=== PATIENT | male | born 1955 | race African-American/Black ===

== ENCOUNTER 2021-05-18 16:24 | Inpatient (IN) | payer MEDICAID ==
[~2021-05-18] VITALS: Ht 188 cm; Wt 94.8 kg
[~2021-05-18 16:24] MED LIST: AMLO-258 PO; CARV3 PO; CHL25 PO; ISOS30TA92 PO; LISI-894 PO
[2021-05-19 13:00] VITALS: BP 161/89
[2021-05-19] MEDS ORDERED: ACETAMINOPHEN 325 MG TABLET PO PRN ×2 (13:45→16:45)
[2021-05-19 15:00] VITALS: BP 154/86
[2021-05-19] MEDS ORDERED: MELATONIN 3 MG TABLET PO PRN (16:45)
[2021-05-19 20:28] VITALS: BP 150/87
[2021-05-19] MEDS: DOCUSATE SODIUM 100 MG CAPSULE PO SCH (20:34)
[2021-05-19] MEDS: SENNA 187 MG TABLET PO SCH (20:34)
[2021-05-19] MEDS: HydrALAZINE HCL 10 MG TABLET PO SCH (20:34)
[2021-05-19] MEDS: ATORVASTATIN CALCIUM 40 MG TABLET PO SCH (20:34)
[2021-05-19] MEDS: CARVEDILOL 3.125 MG TABLET PO SCH (20:34)
[2021-05-19 23:30] VITALS: BP 164/90
[2021-05-20 01:00] VITALS: BP 163/91
[2021-05-20 06:42] LABS: BASOPHILS % (AUTO) 0.6 % (0.0-2.0); EOSINOPHILS % (AUTO) 0.2 % (1.0-6.0); HEMATOCRIT 35.7 % (41-53); LYMPHOCYTES # (AUTO) 0.5 K/uL (1.0-4.8); LYMPHOCYTES % (AUTO) 3.3 % (22.0-44.0); MEAN CORPUSCULAR HEMOGLOBIN 31.1 pg (26.0-34.0); MEAN CORPUSCULAR HGB CONC 33.6 G/dL (31.0-37.0); MEAN CORPUSCULAR VOLUME 93 fL (80-100); MONOCYTES # (AUTO) 1.4 K/uL (0.1-1.0); MONOCYTES % (AUTO) 8.8 % (2.0-9.0); NEUTROPHILS # (AUTO) 13.5 K/uL (1.8-7.7); PLATELET COUNT (AUTO) 425 K/uL (150-450); RED BLOOD CELL COUNT(AUTO) 3.86 MIL/uL (4.50-5.90)
[2021-05-20 06:52] LABS: NEUTROPHILS % (AUTO) 87.1 % (40.0-70.0)
[2021-05-20 07:09] LABS: ALBUMIN 3.3 g/dL (3.4-5.0); POTASSIUM 3.7 mmol/L (3.5-5.1)
[2021-05-20 07:20] LABS: BILIRUBIN,TOTAL 0.4 mg/dL (0.1-1.0); CALCIUM, TOTAL 9.1 mg/dL (8.8-10.5); CREATININE 1.5 mg/dL (0.60-1.30); TOTAL PROTEIN, SERUM 6.3 g/dL (6.4-8.2)
[2021-05-20] MEDS: ENOXAPARIN SODIUM 40 MG/0.4 ML PF SYRINGE SQ SCH (08:21)
[2021-05-20] MEDS: CARVEDILOL 3.125 MG TABLET PO SCH ×2 (08:22→20:12)
[2021-05-20] MEDS: DOCUSATE SODIUM 100 MG CAPSULE PO SCH ×2 (08:22→20:12)
[2021-05-20] MEDS: HydrALAZINE HCL 10 MG TABLET PO SCH ×2 (08:22→20:12)
[2021-05-20] MEDS: AmLODIPine BESYLATE 10 MG TABLET PO SCH (08:22)
[2021-05-20] MEDS: CLOPIDOGREL BISULFATE 75 MG TABLET PO SCH (08:23)
[2021-05-20] MEDS: ETHYL ALCOHOL 62% ANTISEPTIC NASAL INHALANT 0.6 ML AMPUL NASAL SCH ×2 (08:23→20:11)
[2021-05-20 08:37] VITALS: BP 188/89
[2021-05-20 10:40] VITALS: BP 155/79
[2021-05-20] MEDS: LISINOPRIL 20 MG TABLET PO SCH (12:06)
[2021-05-20 16:13] VITALS: BP 151/74
[2021-05-20] MEDS: FAMOTIDINE 20 MG TABLET PO SCH (16:32)
[2021-05-20 20:07] VITALS: BP 154/80
[2021-05-20] MEDS: SENNA 187 MG TABLET PO SCH (20:12)
[2021-05-20] MEDS: ATORVASTATIN CALCIUM 40 MG TABLET PO SCH (20:12)
[2021-05-21 04:00] VITALS: BP 165/98
[2021-05-21] MEDS: FAMOTIDINE 20 MG TABLET PO SCH ×2 (05:46→16:41)
[2021-05-21] MEDS: HydrALAZINE HCL 10 MG TABLET PO SCH ×2 (07:56→20:28)
[2021-05-21] MEDS: ETHYL ALCOHOL 62% ANTISEPTIC NASAL INHALANT 0.6 ML AMPUL NASAL SCH ×2 (07:56→20:28)
[2021-05-21] MEDS: ENOXAPARIN SODIUM 40 MG/0.4 ML PF SYRINGE SQ SCH (07:56)
[2021-05-21] MEDS: LISINOPRIL 20 MG TABLET PO SCH (07:57)
[2021-05-21] MEDS: CLOPIDOGREL BISULFATE 75 MG TABLET PO SCH (07:57)
[2021-05-21] MEDS: AmLODIPine BESYLATE 10 MG TABLET PO SCH (07:58)
[2021-05-21] MEDS: CARVEDILOL 3.125 MG TABLET PO SCH (07:58)
[2021-05-21] MEDS: DOCUSATE SODIUM 100 MG CAPSULE PO SCH ×2 (07:58→20:23)
[2021-05-21 08:58] VITALS: BP 183/83
[2021-05-21 09:15] VITALS: BP 154/83
[2021-05-21] MEDS ORDERED: HydrALAZINE HCL 25 MG TABLET PO PRN (10:00)
[2021-05-21 10:50] VITALS: BP 142/94
[2021-05-21 15:44] VITALS: BP 158/81
[2021-05-21 20:24] VITALS: BP 160/92
[2021-05-21] MEDS: SENNA 187 MG TABLET PO SCH (20:24)
[2021-05-21] MEDS: ATORVASTATIN CALCIUM 40 MG TABLET PO SCH (20:27)
[2021-05-21] MEDS: CARVEDILOL 6.25 MG TABLET PO SCH (20:28)
[2021-05-22 01:49] VITALS: BP 148/71
[2021-05-22] MEDS: FAMOTIDINE 20 MG TABLET PO SCH ×2 (05:42→16:55)
[2021-05-22] MEDS: ETHYL ALCOHOL 62% ANTISEPTIC NASAL INHALANT 0.6 ML AMPUL NASAL SCH ×2 (07:40→20:28)
[2021-05-22] MEDS: LISINOPRIL 20 MG TABLET PO SCH (07:41)
[2021-05-22] MEDS: ENOXAPARIN SODIUM 40 MG/0.4 ML PF SYRINGE SQ SCH (07:41)
[2021-05-22] MEDS: HydrALAZINE HCL 10 MG TABLET PO SCH ×2 (07:41→20:28)
[2021-05-22] MEDS: AmLODIPine BESYLATE 10 MG TABLET PO SCH (07:41)
[2021-05-22] MEDS: DOCUSATE SODIUM 100 MG CAPSULE PO SCH ×2 (07:41→20:27)
[2021-05-22] MEDS: CLOPIDOGREL BISULFATE 75 MG TABLET PO SCH (07:41)
[2021-05-22] MEDS: CARVEDILOL 6.25 MG TABLET PO SCH ×2 (07:42→20:28)
[2021-05-22 08:06] VITALS: BP 138/90
[2021-05-22 16:50] VITALS: BP 155/88
[2021-05-22 20:26] VITALS: BP 153/79
[2021-05-22] MEDS: SENNA 187 MG TABLET PO SCH (20:27)
[2021-05-22] MEDS: ATORVASTATIN CALCIUM 40 MG TABLET PO SCH (20:27)
[2021-05-23 03:20] VITALS: BP 148/79
[2021-05-23] MEDS: FAMOTIDINE 20 MG TABLET PO SCH ×2 (05:40→17:21)
[2021-05-23 06:26] LABS: BASOPHILS % (AUTO) 0.8 % (0.0-2.0); EOSINOPHILS % (AUTO) 0.4 % (1.0-6.0); HEMATOCRIT 34.4 % (41-53); HEMOGLOBIN 11.7 g/dL (13.5-17.5); LYMPHOCYTES # (AUTO) 0.5 K/uL (1.0-4.8); LYMPHOCYTES % (AUTO) 3.3 % (22.0-44.0); MEAN CORPUSCULAR HGB CONC 34.1 G/dL (31.0-37.0); MEAN CORPUSCULAR VOLUME 94 fL (80-100); MONOCYTES # (AUTO) 1.7 K/uL (0.1-1.0); MONOCYTES % (AUTO) 12.3 % (2.0-9.0); NEUTROPHILS # (AUTO) 11.8 K/uL (1.8-7.7); NEUTROPHILS % (AUTO) 83.2 % (40.0-70.0); PLATELET COUNT (AUTO) 538 K/uL (150-450); RED BLOOD CELL COUNT(AUTO) 3.67 MIL/uL (4.50-5.90)
[2021-05-23 06:43] LABS: ANION GAP 7 mmol/L (8-16); CARBON DIOXIDE 28 mmol/L (22-29); CHLORIDE 103 mmol/L (98-107); CREATININE 1.34 mg/dL (0.60-1.30); GLUCOSE,RANDOM 92 mg/dL (70-110); POTASSIUM 3.8 mmol/L (3.5-5.1); SODIUM SERUM 138 mmol/L (136-145); UREA NITROGEN, BLOOD 19 mg/dL (7-18)
[2021-05-23 06:55] LABS: GLOMERULAR FILTR. RATE CALC > 60 mL/min (>60)
[2021-05-23] MEDS: AmLODIPine BESYLATE 10 MG TABLET PO SCH (07:48)
[2021-05-23] MEDS: CARVEDILOL 6.25 MG TABLET PO SCH ×2 (07:48→21:36)
[2021-05-23] MEDS: CLOPIDOGREL BISULFATE 75 MG TABLET PO SCH (07:48)
[2021-05-23] MEDS: LISINOPRIL 20 MG TABLET PO SCH (07:49)
[2021-05-23] MEDS: ENOXAPARIN SODIUM 40 MG/0.4 ML PF SYRINGE SQ SCH (07:49)
[2021-05-23] MEDS: HydrALAZINE HCL 10 MG TABLET PO SCH ×2 (07:49→21:36)
[2021-05-23] MEDS: DOCUSATE SODIUM 100 MG CAPSULE PO SCH ×2 (07:49→21:00)
[2021-05-23] MEDS: ETHYL ALCOHOL 62% ANTISEPTIC NASAL INHALANT 0.6 ML AMPUL NASAL SCH ×2 (07:50→21:36)
[2021-05-23 08:05] VITALS: BP 132/74
[2021-05-23 15:09] VITALS: BP 159/76
[2021-05-23] MEDS: SENNA 187 MG TABLET PO SCH (21:00)
[2021-05-23 21:35] VITALS: BP 148/76
[2021-05-23] MEDS: ATORVASTATIN CALCIUM 40 MG TABLET PO SCH (21:36)
[2021-05-24 05:00] VITALS: BP 141/84
[2021-05-24] MEDS: FAMOTIDINE 20 MG TABLET PO SCH ×2 (05:45→16:49)
[2021-05-24 07:23] VITALS: BP 168/98
[2021-05-24] MEDS: ENOXAPARIN SODIUM 40 MG/0.4 ML PF SYRINGE SQ SCH (07:39)
[2021-05-24] MEDS: HydrALAZINE HCL 10 MG TABLET PO SCH ×2 (07:39→19:53)
[2021-05-24] MEDS: CLOPIDOGREL BISULFATE 75 MG TABLET PO SCH (07:39)
[2021-05-24] MEDS: ETHYL ALCOHOL 62% ANTISEPTIC NASAL INHALANT 0.6 ML AMPUL NASAL SCH ×2 (07:39→19:53)
[2021-05-24] MEDS: LISINOPRIL 20 MG TABLET PO SCH (07:39)
[2021-05-24] MEDS: CARVEDILOL 6.25 MG TABLET PO SCH ×2 (07:39→19:54)
[2021-05-24] MEDS: AmLODIPine BESYLATE 10 MG TABLET PO SCH (07:40)
[2021-05-24] MEDS: DOCUSATE SODIUM 100 MG CAPSULE PO SCH ×2 (07:40→19:54)
[2021-05-24 08:25] VITALS: BP 143/75
[2021-05-24 16:30] VITALS: BP 146/78
[2021-05-24] MEDS: SENNA 187 MG TABLET PO SCH (19:54)
[2021-05-24] MEDS: ATORVASTATIN CALCIUM 40 MG TABLET PO SCH (19:54)
[2021-05-24 19:55] VITALS: BP 142/70
[2021-05-25 02:00] VITALS: BP 150/80
[2021-05-25] MEDS: FAMOTIDINE 20 MG TABLET PO SCH ×2 (05:54→16:16)
[2021-05-25] MEDS: HydrALAZINE HCL 10 MG TABLET PO SCH ×2 (08:13→20:22)
[2021-05-25] MEDS: ENOXAPARIN SODIUM 40 MG/0.4 ML PF SYRINGE SQ SCH (08:13)
[2021-05-25] MEDS: AmLODIPine BESYLATE 10 MG TABLET PO SCH (08:14)
[2021-05-25] MEDS: ETHYL ALCOHOL 62% ANTISEPTIC NASAL INHALANT 0.6 ML AMPUL NASAL SCH ×2 (08:14→20:22)
[2021-05-25] MEDS: CARVEDILOL 6.25 MG TABLET PO SCH ×2 (08:14→20:22)
[2021-05-25] MEDS: LISINOPRIL 20 MG TABLET PO SCH (08:14)
[2021-05-25] MEDS: DOCUSATE SODIUM 100 MG CAPSULE PO SCH ×2 (08:14→20:22)
[2021-05-25] MEDS: CLOPIDOGREL BISULFATE 75 MG TABLET PO SCH (08:14)
[2021-05-25 09:05] VITALS: BP 147/92
[2021-05-25 16:12] VITALS: BP 144/73
[2021-05-25 20:22] VITALS: BP 145/80
[2021-05-25] MEDS: SENNA 187 MG TABLET PO SCH (20:22)
[2021-05-25] MEDS: ATORVASTATIN CALCIUM 40 MG TABLET PO SCH (20:22)
[2021-05-26] MEDS ORDERED: ATOR40TA28 PO (01:27)
[2021-05-26] MEDS ORDERED: LISI-894 PO (01:27)
[2021-05-26] MEDS ORDERED: CARV6 PO (01:27)
[2021-05-26] MEDS ORDERED: DOCU-270 PO (01:27)
[2021-05-26] MEDS ORDERED: FAMO20 PO (01:27)
[2021-05-26] MEDS ORDERED: HYDR10TA31 PO (01:27)
[2021-05-26] MEDS ORDERED: CLOP75TA60 PO (01:27)
[2021-05-26 03:30] VITALS: BP 124/78
[2021-05-26] MEDS: FAMOTIDINE 20 MG TABLET PO SCH ×2 (05:48→16:30)
[2021-05-26 07:24] VITALS: BP 161/83
[2021-05-26 08:05] VITALS: BP 140/85
[2021-05-26] MEDS: ETHYL ALCOHOL 62% ANTISEPTIC NASAL INHALANT 0.6 ML AMPUL NASAL SCH ×2 (08:06→20:35)
[2021-05-26] MEDS: ENOXAPARIN SODIUM 40 MG/0.4 ML PF SYRINGE SQ SCH (08:07)
[2021-05-26] MEDS: AmLODIPine BESYLATE 10 MG TABLET PO SCH (08:07)
[2021-05-26] MEDS: CLOPIDOGREL BISULFATE 75 MG TABLET PO SCH (08:07)
[2021-05-26] MEDS: HydrALAZINE HCL 10 MG TABLET PO SCH ×2 (08:07→20:36)
[2021-05-26] MEDS: LISINOPRIL 20 MG TABLET PO SCH (08:07)
[2021-05-26] MEDS: CARVEDILOL 6.25 MG TABLET PO SCH ×2 (08:08→20:36)
[2021-05-26] MEDS: DOCUSATE SODIUM 100 MG CAPSULE PO SCH ×2 (08:09→20:36)
[2021-05-26 16:41] VITALS: BP 149/85
[2021-05-26 20:35] VITALS: BP 165/82
[2021-05-26] MEDS: ATORVASTATIN CALCIUM 40 MG TABLET PO SCH (20:35)
[2021-05-26] MEDS: SENNA 187 MG TABLET PO SCH (20:36)
[2021-05-26 22:21] VITALS: BP 151/72
[2021-05-27] MEDS: FAMOTIDINE 20 MG TABLET PO SCH ×2 (05:57→15:33)
[2021-05-27 07:50] VITALS: BP 151/76
[2021-05-27] MEDS: HydrALAZINE HCL 10 MG TABLET PO SCH ×2 (09:49→20:31)
[2021-05-27] MEDS: ETHYL ALCOHOL 62% ANTISEPTIC NASAL INHALANT 0.6 ML AMPUL NASAL SCH ×2 (09:49→20:30)
[2021-05-27] MEDS: CLOPIDOGREL BISULFATE 75 MG TABLET PO SCH (09:50)
[2021-05-27] MEDS: CARVEDILOL 6.25 MG TABLET PO SCH ×2 (09:50→20:31)
[2021-05-27] MEDS: LISINOPRIL 20 MG TABLET PO SCH (09:50)
[2021-05-27] MEDS: AmLODIPine BESYLATE 10 MG TABLET PO SCH (09:50)
[2021-05-27] MEDS: ENOXAPARIN SODIUM 40 MG/0.4 ML PF SYRINGE SQ SCH (09:51)
[2021-05-27] MEDS: DOCUSATE SODIUM 100 MG CAPSULE PO SCH ×2 (10:07→20:31)
[2021-05-27 16:30] VITALS: BP 142/78
[2021-05-27 20:25] VITALS: BP 148/74
[2021-05-27] MEDS: ATORVASTATIN CALCIUM 40 MG TABLET PO SCH (20:30)
[2021-05-27] MEDS: SENNA 187 MG TABLET PO SCH (20:31)
[2021-05-28 00:38] VITALS: BP 138/80
[2021-05-28] MEDS: FAMOTIDINE 20 MG TABLET PO SCH ×2 (05:45→16:33)
[2021-05-28] MEDS: CLOPIDOGREL BISULFATE 75 MG TABLET PO SCH (08:47)
[2021-05-28] MEDS: ETHYL ALCOHOL 62% ANTISEPTIC NASAL INHALANT 0.6 ML AMPUL NASAL SCH ×2 (08:47→20:00)
[2021-05-28] MEDS: CARVEDILOL 6.25 MG TABLET PO SCH ×2 (08:48→20:01)
[2021-05-28] MEDS: LISINOPRIL 20 MG TABLET PO SCH (08:48)
[2021-05-28] MEDS: DOCUSATE SODIUM 100 MG CAPSULE PO SCH ×2 (08:48→20:01)
[2021-05-28] MEDS: HydrALAZINE HCL 10 MG TABLET PO SCH ×3 (08:48→20:01)
[2021-05-28] MEDS: AmLODIPine BESYLATE 10 MG TABLET PO SCH (08:48)
[2021-05-28] MEDS: ENOXAPARIN SODIUM 40 MG/0.4 ML PF SYRINGE SQ SCH (08:52)
[2021-05-28 09:09] VITALS: BP 150/90
[2021-05-28 12:00] VITALS: BP 150/74
[2021-05-28 16:30] VITALS: BP 141/77
[2021-05-28] MEDS: ATORVASTATIN CALCIUM 40 MG TABLET PO SCH (20:00)
[2021-05-28] MEDS: SENNA 187 MG TABLET PO SCH (20:00)
[2021-05-28 20:30] VITALS: BP 146/81
[2021-05-29] VITALS: BP 124/73
[2021-05-29] MEDS: FAMOTIDINE 20 MG TABLET PO SCH ×2 (05:44→16:48)
[2021-05-29 06:09] VITALS: BP 148/77
[2021-05-29] MEDS: AmLODIPine BESYLATE 10 MG TABLET PO SCH (07:54)
[2021-05-29] MEDS: ETHYL ALCOHOL 62% ANTISEPTIC NASAL INHALANT 0.6 ML AMPUL NASAL SCH ×2 (07:54→21:15)
[2021-05-29] MEDS: HydrALAZINE HCL 10 MG TABLET PO SCH ×3 (07:54→21:16)
[2021-05-29] MEDS: CARVEDILOL 6.25 MG TABLET PO SCH ×2 (07:54→21:16)
[2021-05-29] MEDS: CLOPIDOGREL BISULFATE 75 MG TABLET PO SCH (07:54)
[2021-05-29] MEDS: LISINOPRIL 20 MG TABLET PO SCH (07:54)
[2021-05-29] MEDS: ENOXAPARIN SODIUM 40 MG/0.4 ML PF SYRINGE SQ SCH (07:55)
[2021-05-29] MEDS: DOCUSATE SODIUM 100 MG CAPSULE PO SCH ×2 (08:02→21:00)
[2021-05-29 09:20] VITALS: BP 145/102
[2021-05-29 16:06] VITALS: BP 146/73
[2021-05-29] MEDS: FLUoxetine HCL 10 MG CAPSULE PO SCH (16:48)
[2021-05-29] MEDS: SENNA 187 MG TABLET PO SCH (21:00)
[2021-05-29 21:14] VITALS: BP 145/86
[2021-05-29] MEDS: ATORVASTATIN CALCIUM 40 MG TABLET PO SCH (21:16)
[2021-05-30] VITALS: BP 158/82
[2021-05-30] MEDS ORDERED: SENN8.6T90 PO (03:46)
[2021-05-30] MEDS ORDERED: DOCU-270 PO (03:46)
[2021-05-30] MEDS ORDERED: FLUO10CA24 PO (03:46)
[2021-05-30] MEDS: FAMOTIDINE 20 MG TABLET PO SCH (06:05)
[2021-05-30] MEDS: ETHYL ALCOHOL 62% ANTISEPTIC NASAL INHALANT 0.6 ML AMPUL NASAL SCH (07:45)
[2021-05-30] MEDS: ENOXAPARIN SODIUM 40 MG/0.4 ML PF SYRINGE SQ SCH (07:45)
[2021-05-30] MEDS: HydrALAZINE HCL 10 MG TABLET PO SCH ×3 (07:46→16:00)
[2021-05-30] MEDS: FLUoxetine HCL 10 MG CAPSULE PO SCH (07:46)
[2021-05-30] MEDS: CLOPIDOGREL BISULFATE 75 MG TABLET PO SCH (07:46)
[2021-05-30] MEDS: CARVEDILOL 6.25 MG TABLET PO SCH (07:46)
[2021-05-30] MEDS: LISINOPRIL 20 MG TABLET PO SCH (07:46)
[2021-05-30] MEDS: AmLODIPine BESYLATE 10 MG TABLET PO SCH (07:46)
[2021-05-30 08:02] VITALS: BP 140/71
[2021-05-30] MEDS: DOCUSATE SODIUM 100 MG CAPSULE PO SCH (09:00)
[2021-05-30 14:58] LABS: COVID AG,FIA SOURCE NASAL SWAB
[2021-05-30 16:03] VITALS: BP 191/95
[2021-05-30 16:15] VITALS: BP 158/84
[2021-05-30 16:20] VITALS: BP 158/84
== END 2021-05-30 16:20 | DRG 58 ==
LOC: 2WR 05-19 12:45
PROVIDERS: ADMIT Physical Medicine & Rehabilitation; ATTEND Physical Medicine & Rehabilitation
DX: I69.354 Hemiplegia and hemiparesis following cerebral infarction affecting left non-dominant side (principal); I63.89 Other cerebral infarction; C85.90 Non-Hodgkin lymphoma, unspecified, unspecified site; D72.829 Elevated white blood cell count, unspecified; E86.0 Dehydration; F32.A Depression, unspecified; R13.10 Dysphagia, unspecified; F43.20 Adjustment disorder, unspecified; Z20.822 Contact with and (suspected) exposure to COVID-19; F41.9 Anxiety disorder, unspecified; I12.9 Hypertensive chronic kidney disease with stage 1 through stage 4 chronic kidney disease, or unspecified chronic kidney disease; I25.10 Atherosclerotic heart disease of native coronary artery without angina pectoris; N18.9 Chronic kidney disease, unspecified; I69.322 Dysarthria following cerebral infarction; I69.391 Dysphagia following cerebral infarction; I69.320 Aphasia following cerebral infarction; Z79.02 Long term (current) use of antithrombotics/antiplatelets; Z88.8 Allergy status to other drugs, medicaments and biological substances
CPT/HCPCS: 80048; 80053; 85025; 87081; 92507; 92523; 93970; 97112; 97116; 97150; 97163; 97166; 97530; 97535; 99366; J1650